=== PATIENT | female | born 1970 | race African-American/Black ===

== ENCOUNTER 2022-08-23 04:11 | Emergency (ER) | payer MEDICAID, OTHER ==
[~2022-08-23] VITALS: Ht 167.6 cm; Wt 75.0 kg
[2022-08-23 04:32] VITALS: BP 163/92
== END 2022-08-23 19:05 | disposition left against medical advice (07) ==
LOC: EDBD 04:11 → ER 04:11
DX: R07.89 Other chest pain (principal); F17.210 Nicotine dependence, cigarettes, uncomplicated; F15.10 Other stimulant abuse, uncomplicated; I10 Essential (primary) hypertension